=== PATIENT | female | born 1945 | race Caucasian/White ===

== ENCOUNTER 2021-10-01 12:05 | Day surgery (SDC) | payer OTHER ==
[~2021-10-01] VITALS: Ht 154.9 cm; Wt 56.8 kg
[~2021-10-01 12:05] MED LIST: ALEN70 PO; CALCAVITD PO; CRUTCH4 USE; HYDACE5325 PO; IPRATROPIUM BRO30 ML; LEVOTHYROXINE PO; LEVSOD100 PO; LOSA50 PO; METO50 PO; MULVITA PO; OMEGA-3-FISH O1 EAC3 PO; PRAV20 PO; TUMERIC PO; VITAMIN D32000 UNIT PO; WARF10 PO
--- NOTE | 2021-10-01 15:40 | NUR ---
PT TO RECOVERY ROOM POST PROCEDURE. PT AWAKE AND CONVERSING APPROPRIATELY; DENIES PAIN POST PROCEDURE. MONITOR PACED 70'S, B/P 120/55, AFEBRILE, SPO2 98% RA. L CHEST GEN CHANGE SITE NO SWELLING/HEMATOMA, TELFA AND TEGADERM DRSG INTACT.
--- NOTE | 2021-10-01 16:21 | NUR ---
PT TOOK LUNCH WITHOUT ISSUE.
--- NOTE | 2021-10-01 17:25 | NUR ---
PT DRESSED SELF WITHOUT ISSUE, SITE UNCHANGED; IV REMOVED-CANNULA INTACT.
--- NOTE | 2021-10-01 17:30 | NUR ---
PT RECEIVED DISCHARGE INSTRUCTIONS, MED LIST AND AFTER CARE INSTRUCTIONS; VERBALIZED GOOD UNDERSTANDING. PT LEFT FACILITY VIA W/C, CONDITION STABLE.
== END 2021-10-01 17:30 | disposition home or self-care (01) ==
LOC: MHTC 12:05
DX: I49.5 Sick sinus syndrome (principal); I10 Essential (primary) hypertension; E78.5 Hyperlipidemia, unspecified; E03.9 Hypothyroidism, unspecified; Z95.2 Presence of prosthetic heart valve; Z88.5 Allergy status to narcotic agent; Z88.2 Allergy status to sulfonamides; Z88.1 Allergy status to other antibiotic agents; Z88.8 Allergy status to other drugs, medicaments and biological substances; Z79.01 Long term (current) use of anticoagulants; Z79.899 Other long term (current) drug therapy
CPT/HCPCS: 33228; 99152; 99153; C1781; C1785; J1644; J2250; J3010; J3370; J7030; J7040